=== PATIENT | female | born 1985 | race African-American/Black ===

== ENCOUNTER 2017-09-28 16:33 | Emergency (ER) | payer OTHER ==
[2017-09-28 17:01] VITALS: BP 168/61; PULSE 99; TEMP 98.7; BMI 35.3
[2017-09-28] MEDS ORDERED: ALBUTEROL SO4 2.5/IPRATROPIUM 0.5 INH SOL 3 ML VIAL.NEB. NEB ONE (18:22)
--- NOTE | 2017-09-28 18:28 | PDOC ---
History of Present Illness - General Chief Complaint: Cold Symptoms Stated Complaint: COLD SYMPTOMS Time Seen by Provider: 09/28/17 18:05 History Source: Patient Exam Limitations: No Limitations - History of Present Illness Initial Comments: 09/28/17 18:23 this is a 32-year-old female without significant past medical history presents emergency Department with 3 weeks of cough. Patient states she was sheeted for influenza approximately 3 weeks ago and her symptoms resolved except for dry cough which is continued today. She denies any shortness of breath, chest pain, dizziness, abdominal pain, nausea, vomiting. Patient does not take any medications. Patient denies any recent travel. Denies sick contacts. Past History - Past Medical History Allergies/Adverse Reactions: Allergies Allergy/AdvReac Type Severity Reaction Status Date / Time No Known Allergies Allergy Verified 09/28/17 16:58 Home Medications: Ambulatory Orders No Home Medications 0 dose .ROUTE UTDICT 02/18/13 Azithromycin [Zithromax 250mg Tablets -] 250 mg PO UTDICT #6 tab 09/28/17 Anemia: Yes Asthma: No Cancer: No Cardiac Disorders: No CVA: No COPD: No CHF: No Dementia: No Diabetes: No GI Disorders: No Disorders: No HTN: No Hypercholesterolemia: No Liver Disease: No Seizures: No Thyroid Disease: No - Suicide/Smoking/Psychosocial Hx Smoking Status: No Smoking History: Never smoked Number of Cigarettes Smoked Daily: 0 Hx Alcohol Use: No Drug/Substance Use Hx: No Substance Use Type: Alcohol Hx Substance Use Treatment: No Respiratory Specific PMHX - Complaint Specific PMHX Angina: No Bronchitis: No Pneumonia: No Pulmonary Embolus: No TB (Tuberculosis): No Review of Systems - Review of Systems Able to Perform ROS?: Yes Is the patient limited [place] proficient: No Constitutional: No: Symptoms Reported HEENTM: No: Symptoms Reported Respiratory: Yes: See HPI Cardiac (ROS): No: Symptoms Reported ABD/GI: No: Symptoms Reported : No: Symptoms Reported Musculoskeletal: No: Symptoms Reported Integumentary: No: Symptoms Reported Neurological: No: Symptoms reported Endocrine: No: Symptoms Reported Hematologic/Lymphatic: No: Symptoms Reported *Physical Exam - Vital Signs Last Vital Signs Temp Pulse Resp BP Pulse Ox 98.7 F 99 H 19 168/61 100 09/28/17 16:59 09/28/17 16:59 09/28/17 16:59 02/18/18 16:59 09/28/17 16:59 - Physical Exam General Appearance: Yes: Appropriately Dressed. No: Apparent Distress HEENT: positive: Normal ENT Inspection Neck: positive: Trachea midline, Supple Respiratory/Chest: positive: Lungs Clear, Normal Breath Sounds. negative: Respiratory Distress, Accessory Muscle Use Cardiovascular: positive: S1, S2, Murmur (3/5 NIDHI), Irregular Gastrointestinal/Abdominal: positive: Normal Bowel Sounds, Soft. negative: Tender Musculoskeletal: positive: Normal Inspection. negative: CVA Tenderness Integumentary: positive: Normal Color, Dry, Warm Neurologic: positive: automation qtp tester II-XII NML intact, Fully Oriented, Alert, Normal Mood/ Affect, Normal Response, Motor Strength 5/5 Medical Decision Making - Medical Decision Making 09/28/17 18:25 A/P: 32-year-old female with 3 weeks of continued cough status post influenza infection. R fresh clear without exudates or erythema. Lungs clear to auscultation bilaterally. Respirations even and unlabored. Irregular heartbeat present. 3/5 systolic murmur present. Abdomen soft nontender nondistended. EKG, Combivent, reassess 09/28/17 19:14 EKG:Trigeminy with rate of 95 Rhythm strip shows trigeminy is not sustained. Given patient's symptoms, I will treat for bronchitis. I'll prescribe a Z-[place] for the patient follow-up with her primary doctor. *DC/Admit/Observation/Transfer Diagnosis at time of Disposition: Bronchitis - Discharge Dispostion Disposition: HOME Condition at time of disposition: Stable Admit: No - Prescriptions Prescriptions: Azithromycin [Zithromax 250mg Tablets -] 250 mg PO UTDICT #6 tab - Referrals - Patient Instructions Printed Discharge Instructions: DI for Acute Bronchitis Additional Instructions: Take azithromycin as prescribed. Continue to take your albuterol pump as per visit prescribed. Take cough syrup as previously prescribed. Return to emergency department for shortness of breath, coughing up blood, chest pain, dizziness or any other concerns. Thank you very much for choosing us to provide your emergent healthcare needs. - Post Discharge Activity
--- NOTE | 2017-09-29 23:18 | EKG ---
Test Reason : Blood Pressure : / mmHG Vent. Rate : 095 BPM Atrial Rate : 095 BPM P-R Int : 158 ms QRS Dur : 070 ms QT Int : 372 ms P-R-T Axes : 055 -49 041 degrees QTc Int : 467 ms SINUS RHYTHM WITH FREQUENT PREMATURE VENTRICULAR COMPLEXES POSSIBLE LEFT ATRIAL ENLARGEMENT LEFT AXIS DEVIATION POSSIBLE INFERIOR INFARCT (CITED ON OR BEFORE 21-JUL-2013) ABNORMAL ECG WHEN COMPARED WITH ECG OF 21-JUL-2013 17:45, PREMATURE VENTRICULAR COMPLEXES ARE NOW PRESENT VENT. RATE HAS INCREASED BY 33 BPM Confirmed by PAULINA LABOY MD ([id number]) on 09/29/2017 11:18:26 PM Referred By: MR Confirmed By:PAULINA LABOY MD
== END 2017-09-28 19:25 | disposition home or self-care (01) ==
LOC: JERFT 16:33
PROC: 3E0F7GC Introduction of Other Therapeutic Substance into Respiratory Tract, Via Natural or Artificial Opening (ICD-10-PCS; principal; 2017-09-28)
DX: J40 Bronchitis, not specified as acute or chronic (principal)
CPT/HCPCS: 93005; 93010; 99281-25

== ENCOUNTER 2020-09-01 12:45 | Emergency (ER) | payer OTHER ==
[2020-09-01 12:55] VITALS: BP 128/81; PULSE 88; TEMP 98; BMI 35.2
[2020-09-01 13:57] LABS: EPI CELLS 7 /uL (0-25.1); HYALINE CASTS 1 /uL (0-3.1); PH,URINE 5.5 (5.0-8.0); URINE APPEARANCE CLEAR; URINE BACTERIA 119 /uL (0-1359); URINE BILIRUBIN NEGATIVE (NEGATIVE); URINE COLOR YELLOW; URINE GLUCOSE (UA) NEGATIVE (NEGATIVE); URINE KETONE TRACE (NEGATIVE); URINE LEUK ESTERASE NEGATIVE (NEGATIVE); URINE NITRITE NEGATIVE (NEGATIVE); URINE PROTEIN NEGATIVE (NEGATIVE); URINE RBC 15 /uL (0-23.9); URINE WBC 3 /uL (0-25.8)
== END 2020-09-01 14:15 | disposition home or self-care (01) ==
LOC: JERFT 12:45
DX: M54.5 Low back pain (principal)
CPT/HCPCS: 81003; 84703; 87086; 99284-25

== ENCOUNTER 2022-03-06 13:49 | Emergency (ER) | payer OTHER ==
[2022-03-06 14:09] VITALS: BP 138/80; PULSE 87; RESP 20; TEMP 98.1; BMI 38.0
[2022-03-06] MEDS ORDERED: LIDOCAINE 5% TOPICAL PATCH TP ONE (14:56)
[2022-03-06] MEDS ORDERED: KETOROLAC TROMETHAMINE 30 MG/1 ML VIAL IM ONE (14:56)
[2022-03-06] MEDS ORDERED: CYCLOBENZAPRINE HCL 10 MG TABLET (FP) PO ONE (14:56)
[2022-03-06] MEDS ORDERED: LIDOCAINE 5% TOPICAL PATCH ONE (15:11)
[2022-03-06] MEDS ORDERED: CYCLOBENZAPRINE HCL 10 MG TABLET (FP) ONE (15:12)
[2022-03-06 15:31] LABS: PH,URINE 5.5 (5.0-8.0); URINE APPEARANCE CLEAR; URINE BILIRUBIN NEGATIVE (NEGATIVE); URINE COLOR YELLOW; URINE GLUCOSE (UA) NEGATIVE (NEGATIVE); URINE KETONE TRACE (NEGATIVE); URINE LEUK ESTERASE NEGATIVE (NEGATIVE); URINE NITRITE NEGATIVE (NEGATIVE); URINE PROTEIN NEGATIVE (NEGATIVE)
[2022-03-06 15:39] LABS: HCG,QUALITATIVE URINE Negative
[2022-03-06] MEDS ORDERED: LIDOCAINE PATCH REMOVAL MC SCH (22:00)
== END 2022-03-06 16:28 | disposition home or self-care (01) ==
LOC: JER 13:49
PROC: 3E023GC Introduction of Other Therapeutic Substance into Muscle, Percutaneous Approach (ICD-10-PCS; principal; 2022-03-06)
DX: M54.50 Low back pain, unspecified (principal)
CPT/HCPCS: 81003; 84703; 87086; 99284-25

== ENCOUNTER 2022-08-11 16:40 | Emergency (ER) | payer OTHER ==
[2022-08-11 17:09] VITALS: BP 144/72; PULSE 90; RESP 17; TEMP 97.9; BMI 38.4
[2022-08-11] MEDS ORDERED: KETOROLAC TROMETHAMINE 30 MG/1 ML VIAL IM ONE (17:43)
[2022-08-11] MEDS ORDERED: diazePAM 5 MG TABLET PO ONE (17:43)
[2022-08-11] MEDS ORDERED: KETOROLAC TROMETHAMINE 30 MG/1 ML VIAL ONE ×2 (17:50→17:51)
[2022-08-11] MEDS ORDERED: diazePAM 5 MG TABLET ONE (17:50)
== END 2022-08-11 18:05 | disposition home or self-care (01) ==
LOC: JERFT 16:40
PROC: 3E0233Z Introduction of Anti-inflammatory into Muscle, Percutaneous Approach (ICD-10-PCS; principal; 2022-08-11)
DX: M62.830 Muscle spasm of back (principal); M54.50 Low back pain, unspecified
CPT/HCPCS: 96372; 99284-25

== ENCOUNTER 2023-02-25 18:35 | Emergency (ER) | payer OTHER ==
[2023-02-25 18:41] VITALS: RESP 20; TEMP 98.3; BMI 37.1
[2023-02-25] MEDS ORDERED: SODIUM CHLORIDE 1,000 ML IV STA (18:47)
[2023-02-25] MEDS ORDERED: METOCLOPRAMIDE HCL INJECTION 10 MG/2 ML VIAL IVPUSH ONE (18:48)
[2023-02-25] MEDS ORDERED: ACETAMINOPHEN 1000 MG/100 ML BAG IVPB ONE (18:48)
[2023-02-25] MEDS ORDERED: METOCLOPRAMIDE HCL INJECTION 10 MG/2 ML VIAL ONE (19:07)
[2023-02-25] MEDS ORDERED: ACETAMINOPHEN INJECTION 100 ML IVPB ONE (19:07)
[2023-02-25 19:50] LABS: BASO % 0.5 % (0-2.0); EOS % 1.3 % (0-4.5); HEMATOCRIT 37.8 % (32.4-45.2); HEMOGLOBIN 11.6 GM/dL (10.7-15.3); LYMPH % 21.4 % (8-40); MCHC 30.7 g/dl (32.0-36.0); MEAN CELL VOLUME 64.5 fl (80-96); MEAN PLT VOLUME 9.1 fl (7.5-11.1); MONO % 8.2 % (3.8-10.2); NEUT % 68.6 % (42.8-82.8); PLATELET COUNT 449 10^3/uL (134-434); RBC 5.87 M/mm3 (3.60-5.2); RDW 17.8 % (11.6-15.6); WHITE BLOOD COUNT 12.9 K/mm3 (4.0-10.0)
[2023-02-25 19:56] LABS: MCH 19.8 pg (25.7-33.7)
[2023-02-25 20:08] LABS: POTASSIUM 4.3 mmol/L (3.5-5.1)
[2023-02-25 20:10] LABS: ALBUMIN 4.1 g/dl (3.4-5.0); CALCIUM 9.8 mg/dL (8.5-10.1); MAGNESIUM 2.1 mg/dL (1.8-2.4)
[2023-02-25 20:12] LABS: BLOOD UREA NITROGEN 11.3 mg/dL (7-18)
[2023-02-25 20:14] LABS: CREATININE 0.7 mg/dL (0.55-1.3)
[2023-02-25 20:15] LABS: BILIRUBIN,TOTAL 0.2 mg/dL (0.2-1); TOT PROT 8.3 g/dl (6.4-8.2)
[2023-02-25 20:39] LABS: ANISOCYTOSIS 2+; MACROCYTOSIS 0; OVALOCYTE 1+; TARGET CELLS 1+
[2023-02-25] MEDS ORDERED: KETOROLAC TROMETHAMINE 30 MG/1 ML VIAL IVPUSH ONE (21:02)
[2023-02-25] MEDS ORDERED: KETOROLAC TROMETHAMINE 30 MG/1 ML VIAL ONE (21:05)
[2023-02-25 21:15] VITALS: BP 132/78; PULSE 104
[2023-02-25 21:24] LABS: EPI CELLS 4 /uL (0-25.1); HYALINE CASTS 0 /uL (0-3.1); PH,URINE 5.5 (5.0-8.0); URINE APPEARANCE CLEAR; URINE BACTERIA 38 /uL (0-1359); URINE BILIRUBIN NEGATIVE (NEGATIVE); URINE COLOR YELLOW; URINE GLUCOSE (UA) NEGATIVE (NEGATIVE); URINE KETONE NEGATIVE (NEGATIVE); URINE LEUK ESTERASE NEGATIVE (NEGATIVE); URINE NITRITE NEGATIVE (NEGATIVE); URINE PROTEIN NEGATIVE (NEGATIVE); URINE RBC 7 /uL (0-23.9); URINE UROBILINOGEN 0.2 mg/dL (0.2-1.0); URINE WBC 3 /uL (0-25.8)
[2023-02-25] MEDS ORDERED: AMOX TR/POT CLAV 875MG/125MG TABLETS (FP) ONE (21:58)
[2023-02-25] MEDS ORDERED: AMOX TR/POT CLAV 875MG/125MG TABLETS (FP) PO STA (21:58)
== END 2023-02-25 22:13 | disposition home or self-care (01) ==
LOC: JER 18:35
PROC: 3E033NZ Introduction of Analgesics, Hypnotics, Sedatives into Peripheral Vein, Percutaneous Approach (ICD-10-PCS; principal; 2023-02-25)
PROC: 3E033GC Introduction of Other Therapeutic Substance into Peripheral Vein, Percutaneous Approach (ICD-10-PCS; 2023-02-25)
PROC: 3E0333Z Introduction of Anti-inflammatory into Peripheral Vein, Percutaneous Approach (ICD-10-PCS; 2023-02-25)
PROC: 3E0337Z Introduction of Electrolytic and Water Balance Substance into Peripheral Vein, Percutaneous Approach (ICD-10-PCS; 2023-02-25)
DX: R51.9 Headache, unspecified (principal); R11.2 Nausea with vomiting, unspecified; G93.9 Disorder of brain, unspecified; J01.80 Other acute sinusitis; Z20.822 Contact with and (suspected) exposure to COVID-19
CPT/HCPCS: 0241U-QW; 36415; 70450-TC; 80053; 81003; 83735; 84703; 85025; 87086